=== PATIENT | male | born 2000 | race Caucasian/White ===

== ENCOUNTER 2024-06-13 09:51 | Outpatient (RCR) | payer BC, SELFPAY | END 2024-09-01 09:43 | disposition home or self-care (01) | PROVIDERS: Visit Provider Orthopaedic Surgery Sports Medicine | DX: S82.891A Other fracture of right lower leg, initial encounter for closed fracture (principal); Z74.09 Other reduced mobility; R26.9 Unspecified abnormalities of gait and mobility; R53.1 Weakness; Z51.89 Encounter for other specified aftercare | CPT/HCPCS: 97110; 97161 ==